=== PATIENT | female | born 1955 | race Caucasian/White ===

== ENCOUNTER → 2017-05-22 | Outpatient (CLI) | payer SELFPAY ==
[~2017-05-22] VITALS: Ht 144.8 cm; Wt 54.1 kg
[~2017-05-22] MED LIST: ASPIRIN 81M81 MG/TA2 PO; ATIVAN 0.50.5 MG/TAB PO; BYSTOLIC10 MG PO; CELEXA 20MG20 MG/TAB PO; COMPAZINE 5MG TA5 MG PO; COSOPT 2%-0.5%10 ML OU; COZAAR100 MG PO; LASIX 20MG TABL20 MG PO; NORCOELIX PO; PRAVACHOL 40MG40 MG PO; PREDFORTE5ML OD; TIROSINT75 MC1 PO
[2017-05-22 07:38] VITALS: BP 122/91; PULSE 60
[2017-05-22 09:00] VITALS: BP 113/76; PULSE 58
[2017-05-22 09:10] VITALS: BP 107/81; PULSE 58
[2017-05-22 09:15] VITALS: BP 128/82; PULSE 56
[2017-05-22 09:30] VITALS: BP 120/80; PULSE 58
[2017-05-22 09:45] VITALS: BP 121/81; PULSE 59
== END ==
LOC: COL.RAD 07:00
DX: N83.8 Other noninflammatory disorders of ovary, fallopian tube and broad ligament (principal); R18.8 Other ascites; J90 Pleural effusion, not elsewhere classified; I10 Essential (primary) hypertension
CPT/HCPCS: J2250; J3010

== ENCOUNTER → 2017-05-28 | Outpatient (CLI) | payer SELFPAY ==
[~2017-05-28] VITALS: Ht 144.8 cm; Wt 56.6 kg
[2017-05-28 13:41] VITALS: BP 140/100; PULSE 71
[2017-05-28 15:52] VITALS: BP 124/88; PULSE 68
== END ==
LOC: COL.RAD 12:57
DX: C56.9 Malignant neoplasm of unspecified ovary (principal); R18.8 Other ascites; I10 Essential (primary) hypertension; Z98.890 Other specified postprocedural states; Z80.1 Family history of malignant neoplasm of trachea, bronchus and lung
CPT/HCPCS: 19804

== ENCOUNTER 2017-06-05 08:28 | Day surgery (SDC) | payer SELFPAY ==
[~2017-06-05] VITALS: Ht 144.8 cm; Wt 54.9 kg
[2017-06-05] VITALS (7 sets, daily range): BP systolic 102–135; BP diastolic 74–97; PULSE 56–72; TEMP 97.2–97.7
[~2017-06-05 08:28] MED LIST changes: -ATIVAN 0.50.5 MG/TAB PO; -COMPAZINE 5MG TA5 MG PO; -NORCOELIX PO
[2017-06-05] MEDS ORDERED: ATIVAN 0.50.5 MG/TAB PO (08:59)
[2017-06-05] MEDS ORDERED: NORCOELIX PO (09:00)
[2017-06-19] MEDS ORDERED: COMPAZINE 5MG TA5 MG PO (13:38)
[2017-06-19] MEDS ORDERED: COSOPT 2%-0.5%10 ML OU (13:41)
== END 2017-06-05 13:13 | disposition home or self-care (01) ==
LOC: SDCO 08:28
DX: Z45.2 Encounter for adjustment and management of vascular access device (principal); C56.1 Malignant neoplasm of right ovary; C78.6 Secondary malignant neoplasm of retroperitoneum and peritoneum; I10 Essential (primary) hypertension; Z80.1 Family history of malignant neoplasm of trachea, bronchus and lung
CPT/HCPCS: C1788; J0690; J1644; J2250; J2405; J2704; J3010

== ENCOUNTER → 2017-06-19 | Outpatient (CLI) | payer SELFPAY ==
[~2017-06-19] VITALS: Ht 144.8 cm; Wt 24.7 kg
[~2017-06-19] MED LIST changes: +ATIVAN 0.50.5 MG/TAB PO; +COMPAZINE 5MG TA5 MG PO; +NORCOELIX PO
[2017-06-19 13:31] VITALS: BP 127/97; PULSE 77
[2017-06-19 14:59] VITALS: BP 120/93; PULSE 63
== END ==
LOC: COL.RAD 13:02
DX: R18.8 Other ascites (principal); C56.9 Malignant neoplasm of unspecified ovary
CPT/HCPCS: 19804

== ENCOUNTER → 2017-07-14 | Outpatient (CLI) | payer SELFPAY ==
[~2017-07-14] VITALS: Ht 144.8 cm; Wt 50.4 kg
[2017-07-14 11:55] VITALS: BP 121/75; PULSE 61
[2017-07-14 13:00] VITALS: BP 115/83; PULSE 72
== END ==
LOC: COL.RAD 11:43
DX: C56.9 Malignant neoplasm of unspecified ovary (principal); R18.8 Other ascites
CPT/HCPCS: 19804

== ENCOUNTER → 2017-11-27 | Outpatient (CLI) | payer MEDICAID ==
[~2017-11-27] VITALS: Ht 144.8 cm; Wt 54.5 kg
[~2017-11-27] MED LIST changes: +LYRICA 25MG CAP25 MG PO
[2017-11-27 09:31] VITALS: PULSE 54
[2017-11-27 09:33] VITALS: BP 158/107; PULSE 54
[2017-11-27 10:32] VITALS: BP 150/87; PULSE 52
[2017-11-27 10:37] VITALS: BP 141/87; PULSE 53
[2017-11-27 10:42] VITALS: BP 135/89; PULSE 51
== END ==
LOC: COL.RAD 09:03
DX: R19.03 Right lower quadrant abdominal swelling, mass and lump (principal); C56.1 Malignant neoplasm of right ovary; C78.6 Secondary malignant neoplasm of retroperitoneum and peritoneum

== ENCOUNTER → 2017-12-11 | Outpatient (CLI) | payer MEDICAID ==
[~2017-12-11] VITALS: Ht 144.8 cm; Wt 47.3 kg
[~2017-12-11] MED LIST changes: +GERITOL; +[UNRECOGNIZED DRUG - OTHER]
[2017-12-11 09:57] VITALS: BP 160/100; PULSE 58
[2017-12-11 11:32] VITALS: BP 158/111; PULSE 63
== END ==
LOC: COL.RAD 12-03 11:15
DX: R19.09 Other intra-abdominal and pelvic swelling, mass and lump (principal); R18.8 Other ascites; C56.1 Malignant neoplasm of right ovary; C56.2 Malignant neoplasm of left ovary; C00-D49 Neoplasms
CPT/HCPCS: 19804; 26396

== ENCOUNTER 2018-02-17 11:20 | Emergency (ER) | payer MEDICAID ==
[~2018-02-17] VITALS: Ht 144.8 cm; Wt 48.6 kg
[2018-02-17 11:30] VITALS: TEMP 98
[2018-02-17 12:22] LABS: BASO % 0.5 % (0.0-2.0); EOS # 0.1 (0.0-0.7); EOS % 1.6 % (0-4.0); GRAN # 5.6 (1.4-6.5); HEMATOCRIT 37.3 % (37.0-47.0); LYMPH # 0.9 (1.2-3.4); LYMPH % 11.6 % (20.0-51.0); MEAN CELL VOLUME 86 fl (80.0-100.0); MEAN CORPUSCULAR HEMOGLOBIN 27 pg (27.0-31.0); MEAN CORPUSCULAR HGB CONC 31 g/dl (33.0-37.0); MEAN PLATELET VOLUME 9.9 fl (7.4-10.4); MONO # 0.8 (0.1-0.6); MONO % 11.2 % (1.7-9.3); PLATELET COUNT 314 K/mm3 (130-400); RED BLOOD COUNT 4.34 M/mm3 (4.10-5.30); REDCELL DISTRIBUTION WIDTH-CV 17.7 % (11.5-14.5)
[2018-02-17 12:23] LABS: HEMOGLOBIN 11.7 g/dl (12.5-16.0)
[2018-02-17 12:29] LABS: INR 1.2 (0.8-3.0); PROTHROMBIN TIME 14.1 SECONDS (9.7-12.8)
[2018-02-17 12:31] LABS: PARTIAL THROMBOPLASTIN TIME 33.4 SECONDS (26.0-37.0)
[2018-02-17 12:33] LABS: ALBUMIN 3.2 gm/dL (3.5-5.0); BILIRUBIN,TOTAL 0.5 mg/dL (0.0-1.0); CALCIUM 8.4 mg/dL (8.4-10.2); CREATININE, serum 0.78 mg/dL (0.52-1.25); POTASSIUM 4.2 mmol/L (3.4-5.0); TOTAL PROTEIN 7.1 gm/dL (6.4-8.2)
[2018-02-17 15:42] VITALS: BP 137/106; PULSE 69
== END 2018-02-17 16:19 | disposition home or self-care (01) ==
LOC: COL.ER 11:20
PROVIDERS: Emergency Medicine
DX: J90 Pleural effusion, not elsewhere classified (principal); Z85.43 Personal history of malignant neoplasm of ovary; Z92.21 Personal history of antineoplastic chemotherapy; Z98.890 Other specified postprocedural states
CPT/HCPCS: J7040

== ENCOUNTER 2018-02-19 07:11 | Outpatient (CLI) | payer MEDICAID ==
[~2018-02-19] VITALS: Ht 144.8 cm; Wt 48.2 kg
[2018-02-19 07:59] VITALS: BP 136/100; PULSE 71; TEMP 98.1
[2018-02-19 09:33] VITALS: BP 121/68; PULSE 70
[2018-02-19 09:48] VITALS: BP 106/82; PULSE 73
[2018-02-19 10:03] VITALS: BP 120/90; PULSE 73
[2018-02-19 10:18] VITALS: BP 118/90; PULSE 73
[2018-02-19 11:15] LABS: GLUCOSE,PLEURAL FLUID 76 mg/dL; TOTAL PROTEIN,PLEURAL FLUID 4.1 gm/dL
[2018-02-19 11:20] VITALS: BP 137/74; PULSE 74
[2018-02-19 11:24] LABS: PLEURAL FLUID RBC 2000 /mm3 (0-0); PLEURAL FLUID WBC 1137 /mm3
[2018-02-19 11:25] LABS: PLEURAL FLUID COLOR YELLOW
[2018-02-19 11:26] LABS: PLEURAL FLUID APPEARANCE CLEAR
== END 2018-02-19 10:30 | disposition home or self-care (01) ==
LOC: SDCO 07:11
PROVIDERS: Internal Medicine Pulmonary Disease
DX: J90 Pleural effusion, not elsewhere classified (principal); R06.02 Shortness of breath; C56.9 Malignant neoplasm of unspecified ovary; I10 Essential (primary) hypertension
CPT/HCPCS: 19804

== ENCOUNTER 2018-03-09 06:36 | Outpatient (CLI) | payer MEDICAID ==
[~2018-03-09] VITALS: Ht 144.8 cm; Wt 46.4 kg
[2018-03-09] MEDS ORDERED: NORCO 325 MG-7.1 TAB PO (07:04)
[2018-03-09] MEDS ORDERED: LASIX 20MG TABL20 MG PO (07:04)
[2018-03-09] MEDS ORDERED: PRAVACHOL 40MG40 MG PO (07:05)
[2018-03-09 07:06] VITALS: BP 159/110; PULSE 63; TEMP 97.3
[2018-03-09 09:15] VITALS: BP 169/116; PULSE 65
[2018-03-10] MEDS ORDERED: BETIMOL 0.5% OPH5 ML OU (08:28)
[2018-03-10] MEDS ORDERED: AZOPT 10 ML10 ML OU (08:29)
[2018-03-11] MEDS ORDERED: HYCET SOLN PO (11:22)
== END 2018-03-09 09:47 | disposition home or self-care (01) ==
LOC: SDCO 06:36
DX: J90 Pleural effusion, not elsewhere classified (principal); R03.0 Elevated blood-pressure reading, without diagnosis of hypertension; R18.8 Other ascites; Z85.43 Personal history of malignant neoplasm of ovary

== ENCOUNTER → 2018-03-11 | Outpatient (CLI) | payer MEDICAID ==
[~2018-03-11] VITALS: Ht 144.8 cm; Wt 46.5 kg
[~2018-03-11] MED LIST changes: +AZOPT 10 ML10 ML OU; +BETIMOL 0.5% OPH5 ML OU; +HYCET SOLN PO; +NORCO 325 MG-7.1 TAB PO
[2018-03-11 11:22] VITALS: BP 170/101; PULSE 77
[2018-03-11 13:00] VITALS: BP 165/101; PULSE 71
== END ==
LOC: COL.RAD 11:00
DX: C56.9 Malignant neoplasm of unspecified ovary (principal); R18.8 Other ascites
CPT/HCPCS: 19804

== ENCOUNTER → 2018-06-14 | Outpatient (CLI) | payer MEDICAID | LOC: COL.RAD 10:34 | DX: C56.1 Malignant neoplasm of right ovary (principal); R91.1 Solitary pulmonary nodule; R19.09 Other intra-abdominal and pelvic swelling, mass and lump | CPT/HCPCS: Q9967 ==

== ENCOUNTER → 2018-08-06 | Outpatient (CLI) | payer MEDICAID | LOC: MC.RAD 09:40 | DX: Z12.31 Encounter for screening mammogram for malignant neoplasm of breast (principal) ==

== ENCOUNTER → 2018-08-11 | Outpatient (CLI) | payer MEDICAID | LOC: COL.RAD 10:47 | DX: C56.1 Malignant neoplasm of right ovary (principal); J90 Pleural effusion, not elsewhere classified; R19.00 Intra-abdominal and pelvic swelling, mass and lump, unspecified site; R18.8 Other ascites; Z95.828 Presence of other vascular implants and grafts | CPT/HCPCS: Q9967 ==

== ENCOUNTER → 2018-11-30 | Outpatient (CLI) | payer MEDICAID ==
[~2018-11-30] VITALS: Ht 144.8 cm; Wt 57.8 kg
[~2018-11-30] MED LIST changes: +TENORMIN 2525 MG/TAB PO
[2018-11-30 11:24] VITALS: BP 155/113; PULSE 85
[2018-11-30 12:25] VITALS: BP 149/105; PULSE 71
--- NOTE | 2018-11-30 12:45 | NUR ---
pt out to car per wheelchair. Denies complaints at this time. Pt into car without assistance.
== END ==
LOC: COL.RAD 11-23 11:30
DX: Z51.11 Encounter for antineoplastic chemotherapy (principal); C56.1 Malignant neoplasm of right ovary; R18.0 Malignant ascites
CPT/HCPCS: Q9967

== ENCOUNTER → 2019-01-13 | Outpatient (CLI) | payer MEDICAID ==
[~2019-01-13] VITALS: Ht 144.8 cm; Wt 60.8 kg
[~2019-01-13] MED LIST changes: +CALCIUM 600/VIT1 CAP PO; +LEVAQUIN 5500 MG/TA1 PO
[2019-01-13 13:03] VITALS: BP 133/105; PULSE 80
[2019-01-13 14:45] VITALS: BP 146/109; PULSE 74
--- NOTE | 2019-01-13 15:17 | NUR ---
PT TAKEN DOWN IN WHEELCHAIR TO POV. HER SISTER IS HERE TO PICK HER UP.
--- NOTE | 2019-01-13 15:20 | NUR ---
IT IS REPORTED THAT DR TEAGUE REMOVED 2100 ML OF BROWN FLUID FROM ABDOMEN
== END ==
LOC: COL.RAD 12:36
DX: R18.8 Other ascites (principal); Z85.43 Personal history of malignant neoplasm of ovary

== ENCOUNTER → 2019-02-08 | Outpatient (CLI) | payer MEDICAID | LOC: COL.VAS 15:46 | DX: R09.89 Other specified symptoms and signs involving the circulatory and respiratory systems (principal); R20.9 Unspecified disturbances of skin sensation ==